=== PATIENT | male | born 1960 | race Caucasian/White ===

== ENCOUNTER 2017-04-03 03:04 | Outpatient (CLI) | payer OTHER | END 2017-04-03 03:05 | disposition home or self-care (01) | LOC: BURLABSP 03:04 | PROVIDERS: ATTEND Clinical Nurse Specialist Medical-Surgical | DX: N18.9 Chronic kidney disease, unspecified (principal) ==

== ENCOUNTER 2017-04-10 02:48 | Outpatient (CLI) | payer OTHER ==
[2017-04-10 05:50] LABS: ALT (SGPT) 19 U/L (8-55); AST (SGOT) 14 U/L (5-34); Albumin 3.8 g/dL (3.5-5.0); Alkaline Phosphatase 59 U/L (40-150); Anion Gap 14 mmol/L (10-20); BUN (Urea Nitrogen) 18 mg/dL (8.4-25.7); Bilirubin, Direct 0.1 mg/dL (0.1-0.3); Bilirubin, Total 0.3 mg/dL (0.2-1.2); Calc. Creatinine Clearance 0 mL/min (70-130); Calcium 8.9 mg/dL (7.8-10.44); Carbon Dioxide 28 mmol/L (22-29); Chloride 108 mmol/L (98-107); Estimated GFR-MDRD 46; Glucose 104 mg/dL (70-105); Potassium 4.1 mmol/L (3.5-5.1); Protein, Total 6.1 g/dL (6.0-8.3); Sodium 146 mmol/L (136-145)
[2017-04-10 07:28] LABS: Eosinophils 1 % (0-10); Lymphocytes 65 % (21-51); MDiff Complete? YES; Macrocytosis SLIGHT = 6-15 cells (100X) (0-5/hpf); Mean Corpuscular HGB CONC 34.3 g/dL (32.0-36.0); Mean Platelet Volume 9.3 fL (7.4-10.4); Monocytes 1 % (0-10); Neutrophil 27 % (42-75); PLT Morphology Comment Appears Decreased; Platelet Count 109 thou/uL (130-400); RBC Distribution Width 11.5 % (11.5-14.5); Reactive Lymphocytes 6 % (0-10); White Blood Cell (WBC) Count 13.6 thou/uL (4.8-10.8)
[2017-04-10 17:41] LABS: Valproic Acid (Depakene) 38.9 ug/mL (50.0-100.0)
== END 2017-04-10 02:49 | disposition home or self-care (01) ==
LOC: BURLABSP 02:48
PROVIDERS: ATTEND Clinical Nurse Specialist Medical-Surgical
DX: N18.2 Chronic kidney disease, stage 2 (mild) (principal); B18.2 Chronic viral hepatitis C
CPT/HCPCS: 36415; 80048; 80076; 80164; 85025

== ENCOUNTER 2017-11-02 07:03 | Emergency (ER) | payer OTHER ==
[2017-11-02] MEDS ORDERED: traMADol HCl 50 MG TAB ONE (08:44)
[2017-11-02] MEDS ORDERED: Acetaminophen 325 MG TAB ONE (08:50)
--- NOTE | 2017-11-02 09:57 | RAD ---
LEFT HIP 2 VIEWS: Date: 11/02/17 The views are suboptimal as it is difficult to position the patient. Nevertheless, there was no sign of fracture. There is no dislocation. Hip joint space is normal in width. The adjacent pubic ring bebeto ears intact. IMPRESSION: No acute findings. POS: HOME
--- NOTE | 2017-11-02 09:58 | RAD ---
LEFT HIP 1 VIEW: Date: 11/02/17 An additional AP view was obtained to better see the remainder of the hip. No fracture was indicated. IMPRESSION: No acute findings. POS: HOME
== END 2017-11-02 11:00 | disposition home or self-care (01) ==
LOC: BURERS 07:03
DX: S70.02XA Contusion of left hip, initial encounter (principal); M25.462 Effusion, left knee; K02.9 Dental caries, unspecified; K21.9 Gastro-esophageal reflux disease without esophagitis; G47.00 Insomnia, unspecified; E78.5 Hyperlipidemia, unspecified; I12.9 Hypertensive chronic kidney disease with stage 1 through stage 4 chronic kidney disease, or unspecified chronic kidney disease; N18.2 Chronic kidney disease, stage 2 (mild); F41.9 Anxiety disorder, unspecified; F32.9 Major depressive disorder, single episode, unspecified; F03.90 Unspecified dementia, unspecified severity, without behavioral disturbance, psychotic disturbance, mood disturbance, and anxiety; F17.210 Nicotine dependence, cigarettes, uncomplicated; D64.9 Anemia, unspecified; Z79.82 Long term (current) use of aspirin; Z79.899 Other long term (current) drug therapy; Z86.73 Personal history of transient ischemic attack (TIA), and cerebral infarction without residual deficits; W06.XXXA Fall from bed, initial encounter